=== PATIENT | female | born 1980 | race Caucasian/White ===

== ENCOUNTER 2021-04-09 10:54 | Emergency (ER) | payer BC, OTHER ==
[~2021-04-09 10:54] MED LIST: OMNICEF 300 MG300 MG PO
[2021-04-09 12:41] LABS: HEMOGLOBIN 15.5 gm/dl (12.3-15.3); RED BLOOD COUNT 5.3 M/UL (4.00-5.10); WHITE BLOOD COUNT 14.5 K/UL (4.5-11.0)
[2021-04-09 13:10] LABS: BUN/CREATININE RATIO 24 (0-10)
[2021-04-09] MEDS ORDERED: IMITREX25 MG PO (17:55)
== END 2021-04-09 18:40 | disposition home or self-care (01) ==
LOC: ER1 10:54
PROVIDERS: Emergency Medicine
DX: G43.909 Migraine, unspecified, not intractable, without status migrainosus (principal); I10 Essential (primary) hypertension; F17.210 Nicotine dependence, cigarettes, uncomplicated; Z20.822 Contact with and (suspected) exposure to COVID-19
CPT/HCPCS: 0240U; 70450; 71045; 71260; 80053; 81001; 82550; 82553; 83605; 83690; 84484; 84703; 85025; 85379; 85610; 85730; 93005; 99284; Q9967

== ENCOUNTER → 2021-04-21 | Outpatient (CLI) | payer BC, OTHER ==
[~2021-04-21] MED LIST changes: +IMITREX25 MG PO
== END ==
LOC: KOH-I 11:37
DX: M54.2 Cervicalgia (principal); M25.512 Pain in left shoulder; R20.0 Anesthesia of skin; M47.812 Spondylosis without myelopathy or radiculopathy, cervical region
CPT/HCPCS: 72050

== ENCOUNTER → 2021-05-03 | Outpatient (CLI) | payer BC, OTHER | LOC: KOH-I 11:10 | DX: M51.26 Other intervertebral disc displacement, lumbar region (principal); M51.27 Other intervertebral disc displacement, lumbosacral region; G89.29 Other chronic pain; M48.061 Spinal stenosis, lumbar region without neurogenic claudication; M47.816 Spondylosis without myelopathy or radiculopathy, lumbar region; M47.817 Spondylosis without myelopathy or radiculopathy, lumbosacral region | CPT/HCPCS: 72148 ==

== ENCOUNTER → 2021-07-09 | Outpatient (CLI) | payer BC | LOC: EXRD 09:23 | DX: M17.0 Bilateral primary osteoarthritis of knee (principal) | CPT/HCPCS: 73560 ==